=== PATIENT | female | born 1980 | race Caucasian/White ===

== ENCOUNTER 2016-08-12 05:17 | Emergency (ER) | payer OTHER ==
--- NOTE | ~2016-08-12 | US85 ---
[facility] A Service [facility] RADIOLOGY TEXT RESULTS PATIENT: CHEMA SOTO V LOCATION: SED : 79 UNIT #: [id number] AGE: [address]: Rdoo Mai MD SEX: F ORDER DR: [id number] [place] [id number] E MR#: [id number] Acc #: [id number] NAME: CHEMA SOTO : 1980 SEX: F STUDY DATE/TIME: 08/12/2016 8:19 UNIT: SED ROOM: STUDY DESCRIPTION: [facility] Attending Physician: Rodo Mai M.D. Ordering Physician: Shivam Talbot M.D. Primary Care Physician: Nelson Tomlinson M.D. MEDICAL IMAGING REPORT This report is preliminary unless electronic signature is present. EXAM Right leg vein Doppler ultrasound 08/12/2016 INDICATION Right leg pain started about 14 hours ago. Patient may have had a trauma last week after an episode of fainting. Patient has history of Factor V. TECHNIQUE Venous ultrasound examination of the right lower extremity was performed using grayscale, spectral Doppler and color flow Doppler imaging. FINDINGS The examination is negative. There is no evidence of right lower extremity deep venous thrombus from the groin to the lower calf. Visualized greater saphenous vein is also patent. IMPRESSION Negative examination. No evidence of right lower extremity deep venous thrombosis. Dictated by... Juan Goins Jr., M.D. THIS IS AN ELECTRONICALLY VERIFIED REPORT Juan Goins Jr., M.D. at 08/13/2016 4:46 PM MAN/bailey TD: 08/12/2016 09:28 JOB #: [id number] [facility] A Service [facility] RADIOLOGY TEXT RESULTS PATIENT: CHEMA SOTO V LOCATION: SED : 79 UNIT #: [id number] AGE: [address]: Rodo Mai MD SEX: F ORDER DR: MEDICAL IMAGING REPORT Page 1 of 1
[2016-08-12 05:04] LABS: BASOPHIL% 0.6 % (0-2.5); EOSINOPHIL# 0.1 X10e3 (0-0.7); EOSINOPHIL% 1.1 % (0.0-7.0); HEMOGLOBIN 13.1 gm/dL (12.0-16.0); LYMPHOCYTE# 2.9 X10e3 (1.0-3.5); LYMPHOCYTE% 47.8 % (17.0-45.0); MEAN CELL VOLUME 89.3 FL (83-96); MEAN CORPUSCULAR HEMOGLOBIN 29.9 PG (28-34); MEAN CORPUSCULAR HGB CONC 33.5 g/dL (30-36); MEAN PLATELET VOLUME 10.3 FL (6.5-11.5); MONOCYTE# 0.6 X10e3 (0-1.0); MONOCYTE% 10.3 % (3.0-12.0); NEUTROPHIL# 2.4 X10e3 (1.5-7.1); NEUTROPHIL% 40.2 % (40-75); PLATELET COUNT 196 X10e3 (140-420); RED BLOOD COUNT 4.37 X10e (3.90-5.30); RED CELL DISTRIBUTION WIDTH 13.4 % (11.0-15.5); WHITE BLOOD COUNT 6.1 X10e3 (4.0-10.5)
[2016-08-12 05:06] LABS: DIFF IND NO
[2016-08-12 05:14] LABS: INR 1.1; PROTHROMBIN TIME (PATIENT) 12.5 SECONDS (9.5-12.4)
[~2016-08-12 05:17] MED LIST: ADIPEX-P37.5 M1 PO; AMBIEN10 MG PO; AMOXICILLIN500 M1 PO; ASPIRIN81 M2 PO; BACLOFEN10 MG PO; BENADRYL25 M1 PO; BENADRYL25 MG PO; DURAGESIC1 EAC3 TOP; FAMOTIDINE PO; GABAPENTIN600 MG PO; KLONOPIN PO; LITHIUM PO; LORAZEPAM1 MG PO; MECLIZINE HCL12.5 M2 PO; MOBIC PO; NEURONTIN300 MG PO; NORCO 10-325 TA1 TAB PO; PREDNISONE PO; PRILOSEC PO; SEROQUEL PO; TOPAMAX50 MG PO; VICODIN PO; VITAMIN B122500 MC1 INJ; ZANAFLEX PO; ZOLOFT50 MG PO
[2016-08-12 05:22] LABS: BUN/CREATININE RATIO 16.66; CALCIUM SERUM 8.8 mg/dL (8.4-10.2); CREATININE SERUM 0.6 mg/dL (0.6-1.4); GLOM FILT RATE Estimated 116.4 mL/min (>60); POTASSIUM 3.3 mmol/L (3.5-5.1)
[2016-08-12 05:23] LABS: PARTIAL THROMBOPLASTIN TIME 32.5 SECONDS (25.6-38.1)
== END 2016-08-12 09:32 | disposition home or self-care (01) ==
LOC: SED 05:17
PROVIDERS: Emergency Medicine
DX: M79.661 Pain in right lower leg (principal); F31.9 Bipolar disorder, unspecified
CPT/HCPCS: 36415; 80048; 85025; 85610; 85730; 93971; 99284

== ENCOUNTER 2016-09-30 09:12 | Emergency (ER) | payer OTHER | END 2016-09-30 10:13 | disposition home or self-care (01) | LOC: CED 09:12 | DX: R55 Syncope and collapse (principal); S46.811A Strain of other muscles, fascia and tendons at shoulder and upper arm level, right arm, initial encounter; Z91.040 Latex allergy status; Z88.5 Allergy status to narcotic agent; Z88.8 Allergy status to other drugs, medicaments and biological substances; X58.XXXA Exposure to other specified factors, initial encounter | CPT/HCPCS: 99284; J1885 ==

== ENCOUNTER 2016-09-30 17:36 | Emergency (ER) | payer OTHER ==
--- NOTE | ~2016-09-30 | EKG ---
PATIENT: CHEMA SOTO UNIT #: [id number] Ventricular Rate: 76 BPM Atrial Rate: 76 BPM P-R Interval: 130 ms QRS Duration: 70 ms Q-T Interval: 360 ms QTC Calculation(Bezet): 405 ms P [place]: 18 degrees Calculated R [place]: 46 degrees Calculated T [place]: 31 degrees Diagnosis Line: Normal sinus rhythm Diagnosis Line: Normal ECG Diagnosis Line: Diagnosis Line: Confirmed by ROMY LOPEZ MD ([id number]) on 09/30/2016 Diagnosis Line: 7:00:02 PM INTERPRETING MD: JESSICA RIZZO
[2016-09-30 18:19] LABS: BASOPHIL% 0.6 % (0-2.5); DIFF IND NO; EOSINOPHIL% 0.5 % (0.0-7.0); HEMATOCRIT 38.7 % (35.0-45.0); HEMOGLOBIN 12.7 gm/dL (12.0-16.0); LYMPHOCYTE# 2.8 X10e3 (1.0-3.5); LYMPHOCYTE% 35.8 % (17.0-45.0); MEAN CELL VOLUME 90.4 FL (83-96); MEAN CORPUSCULAR HEMOGLOBIN 29.7 PG (28-34); MEAN CORPUSCULAR HGB CONC 32.9 g/dL (30-36); MEAN PLATELET VOLUME 10.3 FL (6.5-11.5); MONOCYTE# 0.8 X10e3 (0-1.0); MONOCYTE% 10.5 % (3.0-12.0); NEUTROPHIL# 4.1 X10e3 (1.5-7.1); NEUTROPHIL% 52.6 % (40-75); PLATELET COUNT 198 X10e3 (140-420); RED BLOOD COUNT 4.28 X10e (3.90-5.30); RED CELL DISTRIBUTION WIDTH 13.6 % (11.0-15.5); WHITE BLOOD COUNT 7.8 X10e3 (4.0-10.5)
[2016-09-30 18:35] LABS: POC - CKMB 1.6 ng/mL (0.0-7.9); POC - TROPONIN <0.05 ng/mL (<=0.05)
[2016-09-30 18:40] LABS: ALBUMIN SERUM 3.8 g/dL (3.5-5.0); ALKALINE PHOSPHATASE 58 U/L (32-92); ALT (SGPT) 13 U/L (10-40); AST (SGOT) 19 U/L (10-42); BILIRUBIN,TOTAL 0.6 mg/dL (0.2-2.0); BLOOD UREA NITROGEN 13 mg/dL (9-23); BUN/CREATININE RATIO 21.66; CALCIUM SERUM 8.4 mg/dL (8.4-10.2); CARBON DIOXIDE 24 mmol/L (22-31); CHLORIDE 105 mmol/L (100-111); CREATININE SERUM 0.6 mg/dL (0.6-1.4); GLOM FILT RATE Estimated 116.4 mL/min (>60); GLUCOSE FASTING 107 mg/dL (70-110); POTASSIUM 3.9 mmol/L (3.5-5.1); PROTEIN TOTAL SERUM 6.3 g/dL (6.0-8.3); SODIUM 136 mmol/L (135-145)
[2016-09-30 18:42] LABS: BILIRUBIN, DIRECT <0.1 mg/dL (0.0-0.2); BILIRUBIN,INDIRECT 0.5 mg/dL (0.0-0.9)
[2016-09-30 20:05] LABS: URINE SOURCE CLEAN CATCH
[2016-09-30 20:10] LABS: URINE APPEARANCE CLOUDY; URINE BILIRUBIN NEG (NEG); URINE BLOOD NEG (NEG); URINE COLOR YELLOW; URINE GLUCOSE NEG (NEG); URINE KETONE NEG (NEG); URINE LEUKOCYTE ESTERASE NEG (NEG); URINE NITRATE NEG (NEG); URINE PH 6.5 (5-8); URINE PROTEIN NEG (NEG); URINE SPECIFIC GRAVITY 1.026 (1.003-1.035)
[2016-09-30 20:16] LABS: CULTURE INDICATED? NO
[2016-09-30 20:57] LABS: POC - CKMB 1.4 ng/mL (0.0-7.9); POC - TROPONIN <0.05 ng/mL (<=0.05)
== END 2016-09-30 21:56 | disposition home or self-care (01) ==
LOC: CED 17:36
PROVIDERS: Emergency Medicine
DX: R07.89 Other chest pain (principal); R55 Syncope and collapse; Z91.040 Latex allergy status; Z88.5 Allergy status to narcotic agent; Z88.8 Allergy status to other drugs, medicaments and biological substances; Z79.899 Other long term (current) drug therapy
CPT/HCPCS: 36415; 80048; 80076; 81003; 82553; 84484; 85025; 93005; 99284

== ENCOUNTER → 2016-10-22 | Outpatient (CLI) | payer OTHER ==
[~2016-10-22] MED LIST changes: +CHEWABLE ASPIRI81 MG; +EFFEXOR75 M2 PO; +GABAPENTIN300 MG PO; +KLONOPIN0.5 M3 PO; +MULTI VITAMIN1 EACH; +NAPROXEN PO; +PLAQUENIL200 MG PO; +SEROQUEL100 MG PO; +VITAMIN D250000 UNIT; +XARELTO15 MG PO
--- NOTE | ~2016-10-22 | MR31 ---
[facility] A Service of [facility] RADIOLOGY TEXT RESULTS PATIENT: CHEMA SOTO V LOCATION: [facility] : 79 UNIT #: [id number] AGE: [address]: Ji Velasco II, MD SEX: F ORDER DR: [id number] [place] [id number] [facility]. [place], [place] [address] [id number] O MR#: [id number] Acc #: [id number] NAME: CHEMA SOTO V. : 1980 SEX: F STUDY DATE/TIME: 10/22/2016 16:40 UNIT: [facility] ROOM: STUDY DESCRIPTION: MR Cervical WWo Contrast Attending Physician: Ji Velasco II., M.D. Referring Physician: Ji Velasco II., M.D. Ordering Physician: Ji Velasco II., M.D. Primary Care Physician: Nelson Tomlinson M.D. MRI CENTER REPORT This report is preliminary unless electronic signature is present. EXAM Cervical spine MRI with and without contrast 10/22/2016 COMPARISON Unenhanced cervical spine MRI 04/12/2013. PROCEDURE Routine cervical spine MRI with and without contrast. CLINICAL HISTORY 6 month history of headache, dizziness and blurred vision and 3 week history of syncopal episode. Recent diagnosis of lupus. Bilateral arm weakness for 3 weeks. FINDINGS There has been cervical fusion anteriorly at 6-7, new since the prior study. Allowing for metallic field distortion bone marrow signal appears normal. Cord signal is normal and the posterior fossa and its contents are normal. Postcontrast images show no conspicuous or suspicious abnormal enhancement. At C2-3, the canal and foramina are normal. At C3-4, there is mild canal narrowing and minimal right and left foraminal narrowing. At C4-5 there is a right side bony ridge, mild right-sided canal stenosis, no definite cord compression, and no left but mild or [id number] right foraminal narrowing. At C5-6, there is mild canal stenosis and borderline to mild right and no left foraminal stenosis. [facility] A Service of [facility] RADIOLOGY TEXT RESULTS PATIENT: CHEMA [facility]OTO [facility] UN[facility] #: [id number] AGE: [address]: Ji Velasco II, MD SEX: F ORDER DR: At 6-7, the canal and foramina are widely patent. At 7-1, the canal and foramina are normal. IMPRESSION Degenerative change is fairly modest primarily at 4-5 and 5-6 status post anterior fusion at 6-7. No cord compression or abnormal cord signal. No abnormal enhancement. Dictated by... Lincoln Armenta M.D. THIS IS AN ELECTRONICALLY VERIFIED REPORT Lincoln Armenta M.D. at 11/03/2016 10:39 AM PAYTON/mack TD: 10/25/2016 15:27 JOB #: [id number] MRI CENTER REPORT Page 1 of 1 COPY
--- NOTE | ~2016-10-22 | CT23 ---
[facility] A Service of [facility] RADIOLOGY TEXT RESULTS PATIENT: CHEMA SOTO V [facility] UNIT #: [id number] AGE: [address]: Ji Velasco II, MD SEX: F ORDER DR: [id number] [place] [id number] [place], [place] [address] [id number] O MR#: [id number] Acc #: [id number] NAME: CHEMA SOTO V. : 1980 SEX: F STUDY DATE/TIME: 10/22/2016 15:42 UNIT: [facility] ROOM: STUDY DESCRIPTION: CT Angio Neck Attending Physician: Ji Velasco II., M.D. Referring Physician: Ji Velasco II., M.D. Ordering Physician: iJ Velasco II., M.D. Primary Care Physician: Nelson Tomlinson M.D. MEDICAL IMAGING REPORT This report is preliminary unless electronic signature is present EXAM CT angiogram of the neck 10/22/2016 Result text under order number ending [id number] CT angiogram of the head and neck 10/22/2016. Please see this order for result text. Dictated by... Lincoln Armenta M.D. THIS IS AN ELECTRONICALLY VERIFIED REPORT Lincoln Armenta M.D. at 11/03/2016 10:40 AM PAYTON/hernando TD: 10/25/2016 15:30 JOB #: [id number] MEDICAL IMAGING REPORT Page 1 of 1 COPY
--- NOTE | ~2016-10-22 | MR17 ---
[facility] A Service of [facility] RADIOLOGY TEXT RESULTS PATIENT: CHEMA SOTO V LOCATION: [facility] : 79 UNIT #: [id number] AGE: [address]: Ji Velasco II, MD SEX: F ORDER DR: [id number] [place] [address] [facility]. [place], [place] [address] [id number] O MR#: [id number] Acc #: [id number] NAME: CHEMA SOTO V. : 1980 SEX: F STUDY DATE/TIME: 10/22/2016 16:14 UNIT: [facility] ROOM: STUDY DESCRIPTION: MR Brain WWo Contrast Attending Physician: Ji Velasco II., M.D. Referring Physician: Ji Velasco II., M.D. Ordering Physician: Ji Velasco II., M.D. Primary Care Physician: Nelson Tomlinson M.D. MRI CENTER REPORT This report is preliminary unless electronic signature is present. EXAM Brain MRI with and without contrast, 10/22/2016. COMPARISON Head and neck CT angiogram, same date. PROCEDURE Routine brain MR with and without contrast. CLINICAL HISTORY 6-month history of headaches, dizziness, and blurred vision and 3-week history of multiple syncopal episodes. History of lupus. Previous history of bilateral arm weakness. FINDINGS There is no MR evidence of restricted diffusion. There is no intracranial hemorrhage. There is no hydrocephalus or extraaxial fluid collection. Brain parenchymal signal is normal. Normal flow voids are seen in the cerebral vessels. The extracranial soft tissues are normal. Bone marrow signal is normal, and postcontrast images show no mass or abnormal enhancement. IMPRESSION Normal brain MR with and without contrast. Dictated by... Lincoln Armenta M.D. THIS IS AN ELECTRONICALLY VERIFIED REPORT Lincoln Armenta M.D. at 10/25/2016 10:54 AM PAYTON/antony [facility] A Service of [facility] RADIOLOGY TEXT RESULTS PATIENT: CHEMA SOTO V LOCATION: [facility] : 79 UNIT #: [id number] AGE: [address]: Ji Velasco II, MD SEX: F ORDER DR: TD: 10/24/2016 17:14 JOB #: [id number] MRI CENTER REPORT Page 1 of 1 COPY
--- NOTE | ~2016-10-22 | CT17 ---
[facility] A Service of [facility] RADIOLOGY TEXT RESULTS PATIENT: CHEMA SOTO V LOCATION: [facility] : 79 UNIT #: [id number] AGE: [address]: Ji Velasco II, MD SEX: F ORDER DR: [id number] [facility] [address] [place], [place] [address] [id number] O MR#: [id number] Acc #: [id number] NAME: CHEMA SOTO V. : 1980 SEX: F STUDY DATE/TIME: 10/22/2016 15:42 UNIT: [facility] ROOM: STUDY DESCRIPTION: CT Angio Head Attending Physician: Ji Velasco II., M.D. Referring Physician: Ji Velasco II., M.D. Ordering Physician: Ji Velasco II., M.D. Primary Care Physician: Nelson Tolminson M.D. MEDICAL IMAGING REPORT This report is preliminary unless electronic signature is present EXAM Head and neck CT angiogram with contrast 10/22/2016 PROCEDURE Axial contrast-enhanced head and neck CT angiogram with three-dimensional reformats. This CT exam was performed with one or more of the following radiation dose reduction techniques: automatic exposure control, adjustment of mA and/or kV according to patient size, and iterative reconstruction. COMPARISON Brain MRI 10/24/2016 and carotid Doppler 05/21/2015 HISTORY Memory loss, headache and syncope for 1 month. FINDINGS There is a bovine-type aortic arch branching pattern without proximal great vessel stenosis. The vertebral origins are widely patent and the cervical carotid bifurcations are normal without plaque, and without stenosis, by NASCET or other criteria. The upper cervical vertebral and internal carotid arteries are normal and in intracranially, the basilar artery is normal and the [place] of [place] appears complete. There is no evidence of intracranial aneurysm or flow-limiting stenosis though the anterior communicator is broad and may in fact the fenestrated. There is symmetric intracranial vascularity in the anterior, middle and posterior cerebral distributions. The dural venous sinuses are normal. The cervical soft tissues are normal. There has been previous cervical fusion. The brain appears normal. The skull base and calvarium and other bony structures are unremarkable except for prior cervical fusion and the lung apices are normal. [facility] A Service of [facility] & [facility] RADIOLOGY TEXT RESULTS PATIENT: CHEMA SOTO V [id number] [birth year] UNIT #: [id number] AGE: [address]: Ji Velasco II, MD SEX: F ORDER DR: IMPRESSION Normal head and neck CT angiogram. No carotid or vertebral stenosis. No stenosis by NASCET criteria on either side. Dictated by... Lincoln Armenta M.D. THIS IS AN ELECTRONICALLY VERIFIED REPORT Lincoln Armenta M.D. at 11/03/2016 10:39 AM PAYTON/hernando TD: 10/25/2016 15:28 JOB #: [id number] MEDICAL IMAGING REPORT Page 1 of 1 COPY
== END | disposition home or self-care (01) ==
LOC: CCAT 13:56
DX: R53.83 Other fatigue (principal); M47.892 Other spondylosis, cervical region; Z98.1 Arthrodesis status
CPT/HCPCS: 70496; 70498; 70553; 72156; A9577; Q9967

== ENCOUNTER 2016-10-23 22:52 | Emergency (ER) | payer OTHER ==
[~2016-10-23 22:52] MED LIST changes: -CHEWABLE ASPIRI81 MG; -EFFEXOR75 M2 PO; -GABAPENTIN300 MG PO; -KLONOPIN0.5 M3 PO; -MULTI VITAMIN1 EACH; -NAPROXEN PO; -PLAQUENIL200 MG PO; -SEROQUEL100 MG PO; -VITAMIN D250000 UNIT; -XARELTO15 MG PO
[2016-10-23] MEDS ORDERED: VITAMIN D250000 UNIT (23:01)
[2016-10-23] MEDS ORDERED: CHEWABLE ASPIRI81 MG (23:01)
[2016-10-23] MEDS ORDERED: MULTI VITAMIN1 EACH (23:01)
== END 2016-10-23 23:59 | disposition home or self-care (01) ==
LOC: SED 22:52
DX: I80.8 Phlebitis and thrombophlebitis of other sites (principal); F31.9 Bipolar disorder, unspecified; Z98.890 Other specified postprocedural states; Z88.5 Allergy status to narcotic agent; Z91.040 Latex allergy status; Z79.899 Other long term (current) drug therapy
CPT/HCPCS: 99283

== ENCOUNTER 2016-11-17 21:40 | Emergency (ER) | payer OTHER, MEDICARE ==
[~2016-11-17] VITALS: Ht 147.3 cm; Wt 63.0 kg
--- NOTE | ~2016-11-17 | EKG ---
PATIENT: CHEMA SOTO UNIT #: [id number] Ventricular Rate: 71 BPM Atrial Rate: 71 BPM P-R Interval: 156 ms QRS Duration: 70 ms Q-T Interval: 372 ms QTC Calculation(Bezet): 404 ms P [place]: 39 degrees Calculated R [place]: 63 degrees Calculated T [place]: 47 degrees Diagnosis Line: Normal sinus rhythm Diagnosis Line: Normal ECG Diagnosis Line: When compared with ECG of 30-SEP-2016 17:39, Diagnosis Line: No significant change was found Diagnosis Line: Confirmed by HUYEN MITCHELL MD ([id number]) on Diagnosis Line: 11/18/2016 1:36:00 PM INTERPRETING MD: STEPHEN RIZZO
--- NOTE | ~2016-11-17 | CT16 ---
[facility] A Service of [facility] RADIOLOGY TEXT RESULTS PATIENT: CHEMA SOTO V LOCATION: SED : 79 UNIT #: [id number] AGE: [address]: José Luis Pérez MD SEX: F ORDER DR: [id number] [place] [id number] E MR#: [id number] Acc #: [id number] NAME: CHEMA SOTO V. : 1980 SEX: F STUDY DATE/TIME: 11/17/2016 23:22 UNIT: SED ROOM: STUDY DESCRIPTION: CT Angio Chest for PE Attending Physician: José Luis Pérez M.D. Ordering Physician: José Luis Pérez M.D. Primary Care Physician: Nelson Tomlinson M.D. MEDICAL IMAGING REPORT This report is preliminary unless electronic signature is present. EXAM Chest CTA, 11/17 at 2322 hours. INDICATIONS Pain under the left breast with cough and shortness of air for 1 week. History of factor 5. TECHNIQUE Axial images were obtained through the chest following IV contrast administration. 3-D reformats were obtained. Comparison made with 11/25/2015. This CT exam was performed with one or more of the following radiation dose reduction techniques: automatic exposure control, adjustment of mA and/or kV according to patient size, and iterative reconstruction. FINDINGS No pulmonary embolism or aortic dissection is seen. There is no pleural or pericardial effusion. There is no adenopathy. There is chronic elevation of the right hemidiaphragm. Lungs are clear. Upper abdomen is unremarkable. Patient status post cervical fusion. IMPRESSION No pulmonary embolism or aortic dissection. No active disease in the chest. Dictated by... Juan Goins Jr., M.D. THIS IS AN ELECTRONICALLY VERIFIED REPORT Juan Goins Jr., M.D. at 11/18/2016 6:01 AM ANTONIAK/amarilis [facility] A Service of [facility] RADIOLOGY TEXT RESULTS PATIENT: CHEMA SOTO V LOCATION: [facility] : 79 UNIT #: [id number] AGE: [address]: José Luis Pérez MD SEX: F ORDER DR: TD: 11/18/2016 05:28 JOB #: [id number] MEDICAL IMAGING REPORT Page 1 of 1
[~2016-11-17 21:40] MED LIST changes: +CHEWABLE ASPIRI81 MG; +MULTI VITAMIN1 EACH; +VITAMIN D250000 UNIT
[2016-11-17] MEDS ORDERED: KLONOPIN0.5 M3 PO (21:55)
[2016-11-17] MEDS ORDERED: GABAPENTIN300 MG PO (21:55)
[2016-11-17] MEDS ORDERED: EFFEXOR75 M2 PO (21:55)
[2016-11-17] MEDS ORDERED: NAPROXEN PO (21:55)
[2016-11-17 22:47] LABS: BASOPHIL# 0.1 X10e3 (0-0.3); BASOPHIL% 0.7 % (0-2.5); DIFF IND NO; EOSINOPHIL# 0.1 X10e3 (0-0.7); EOSINOPHIL% 1.4 % (0.0-7.0); HEMATOCRIT 38.2 % (35.0-45.0); LYMPHOCYTE# 2.7 X10e3 (1.0-3.5); LYMPHOCYTE% 39.2 % (17.0-45.0); MEAN CELL VOLUME 90.6 FL (83-96); MEAN CORPUSCULAR HEMOGLOBIN 30.7 PG (28-34); MEAN CORPUSCULAR HGB CONC 33.9 g/dL (30-36); MEAN PLATELET VOLUME 9.9 FL (6.5-11.5); MONOCYTE# 0.7 X10e3 (0-1.0); MONOCYTE% 10.6 % (3.0-12.0); NEUTROPHIL# 3.3 X10e3 (1.5-7.1); NEUTROPHIL% 48.1 % (40-75); PLATELET COUNT 191 X10e3 (140-420); RED BLOOD COUNT 4.21 X10e (3.90-5.30); RED CELL DISTRIBUTION WIDTH 13.5 % (11.0-15.5); WHITE BLOOD COUNT 6.9 X10e3 (4.0-10.5)
[2016-11-17 22:53] LABS: PROTHROMBIN TIME (PATIENT) 11.6 SECONDS (9.5-12.4)
[2016-11-17 22:59] LABS: POC - CKMB 2.5 ng/mL (0.0-7.9); POC - TROPONIN <0.05 ng/mL (<=0.05)
[2016-11-17 23:01] LABS: ALBUMIN SERUM 3.9 g/dL (3.5-5.0); ALKALINE PHOSPHATASE 70 U/L (32-92); ALT (SGPT) 18 U/L (10-40); AST (SGOT) 24 U/L (10-42); BILIRUBIN,TOTAL 0.3 mg/dL (0.2-2.0); BLOOD UREA NITROGEN 16 mg/dL (9-23); BUN/CREATININE RATIO 26.66; CALCIUM SERUM 8.6 mg/dL (8.4-10.2); CARBON DIOXIDE 25 mmol/L (22-31); CHLORIDE 106 mmol/L (100-111); CREATININE SERUM 0.6 mg/dL (0.6-1.4); GLOM FILT RATE Estimated 116.4 mL/min (>60); GLUCOSE FASTING 88 mg/dL (70-110); PARTIAL THROMBOPLASTIN TIME 31.8 SECONDS (25.6-38.1); POTASSIUM 3.8 mmol/L (3.5-5.1); PROTEIN TOTAL SERUM 6.7 g/dL (6.0-8.3); SODIUM 137 mmol/L (135-145)
[2016-11-17 23:05] LABS: BILIRUBIN, DIRECT <0.1 mg/dL (0.0-0.2); BILIRUBIN,INDIRECT 0.2 mg/dL (0.0-0.9)
[2016-11-18 00:29] LABS: POC - CKMB 1.8 ng/mL (0.0-7.9); POC - TROPONIN <0.05 ng/mL (<=0.05)
== END 2016-11-18 00:43 | disposition home or self-care (01) ==
LOC: SED 21:40
PROVIDERS: Emergency Medicine
DX: R07.9 Chest pain, unspecified (principal); F31.9 Bipolar disorder, unspecified; M32.9 Systemic lupus erythematosus, unspecified; Z88.5 Allergy status to narcotic agent; Z91.040 Latex allergy status; Z88.8 Allergy status to other drugs, medicaments and biological substances; Z79.899 Other long term (current) drug therapy; F17.200 Nicotine dependence, unspecified, uncomplicated
CPT/HCPCS: 36415; 71275; 80048; 80076; 82553; 84484; 84703; 85025; 85610; 85730; 93005; 99285; Q9967

== ENCOUNTER 2016-11-25 19:41 | Emergency (ER) | payer MEDICARE, OTHER ==
[~2016-11-25] VITALS: Ht 147.3 cm; Wt 63.0 kg
--- NOTE | ~2016-11-25 | EKG ---
PATIENT: CHEMA SOTO UNIT #: [id number] Ventricular Rate: 67 BPM Atrial Rate: 67 BPM P-R Interval: 142 ms QRS Duration: 66 ms Q-T Interval: 378 ms QTC Calculation(Bezet): 399 ms P [place]: 32 degrees Calculated R [place]: 59 degrees Calculated T [place]: 1 degrees Diagnosis Line: Normal sinus rhythm Diagnosis Line: Normal ECG Diagnosis Line: When compared with ECG of 17-NOV-2016 22:20, Diagnosis Line: No significant change was found Diagnosis Line: Confirmed by ROMY LOPEZ MD ([id number]) on 11/27/2016 Diagnosis Line: 8:25:36 AM INTERPRETING MD: JESSICA RIZZO
[~2016-11-25 19:41] MED LIST changes: -PLAQUENIL200 MG PO; -SEROQUEL100 MG PO; -XARELTO15 MG PO
[2016-11-25] MEDS ORDERED: XARELTO15 MG PO (19:47)
[2016-11-25] MEDS ORDERED: PLAQUENIL200 MG PO (19:47)
[2016-11-25] MEDS ORDERED: SEROQUEL100 MG PO (19:48)
[2016-11-25] MEDS ORDERED: AMBIEN10 MG PO (19:48)
[2016-11-25 20:51] LABS: BASOPHIL# 0.1 X10e3 (0-0.3); BASOPHIL% 0.6 % (0-2.5); EOSINOPHIL# 0.1 X10e3 (0-0.7); EOSINOPHIL% 0.5 % (0.0-7.0); HEMATOCRIT 40.3 % (35.0-45.0); HEMOGLOBIN 13.2 gm/dL (12.0-16.0); LYMPHOCYTE# 2.5 X10e3 (1.0-3.5); LYMPHOCYTE% 24.5 % (17.0-45.0); MEAN CELL VOLUME 90.4 FL (83-96); MEAN CORPUSCULAR HEMOGLOBIN 29.6 PG (28-34); MEAN CORPUSCULAR HGB CONC 32.8 g/dL (30-36); MEAN PLATELET VOLUME 10.1 FL (6.5-11.5); MONOCYTE# 1.2 X10e3 (0-1.0); NEUTROPHIL# 6.4 X10e3 (1.5-7.1); NEUTROPHIL% 62.4 % (40-75); PLATELET COUNT 217 X10e3 (140-420); RED BLOOD COUNT 4.45 X10e (3.90-5.30); RED CELL DISTRIBUTION WIDTH 13.4 % (11.0-15.5); WHITE BLOOD COUNT 10.2 X10e3 (4.0-10.5)
[2016-11-25 20:58] LABS: DIFF IND NO
[2016-11-25 20:59] LABS: POC - CKMB <1.0 ng/mL (0.0-7.9); POC - TROPONIN <0.05 ng/mL (<=0.05)
[2016-11-25 21:22] LABS: ALBUMIN SERUM 3.9 g/dL (3.5-5.0); BILIRUBIN, DIRECT 0.1 mg/dL (0.0-0.2); BILIRUBIN,INDIRECT 0.1 mg/dL (0.0-0.9); BILIRUBIN,TOTAL 0.2 mg/dL (0.2-2.0); CALCIUM SERUM 8.8 mg/dL (8.4-10.2); CREATININE SERUM 0.6 mg/dL (0.6-1.4); GLOM FILT RATE Estimated 116.4 mL/min (>60); POTASSIUM 3.2 mmol/L (3.5-5.1); PROTEIN TOTAL SERUM 6.9 g/dL (6.0-8.3)
== END 2016-11-25 23:25 | disposition home or self-care (01) ==
LOC: CED 19:41
PROVIDERS: Emergency Medicine
DX: J18.1 Lobar pneumonia, unspecified organism (principal); Z90.710 Acquired absence of both cervix and uterus; Z98.890 Other specified postprocedural states; Z91.040 Latex allergy status; Z88.5 Allergy status to narcotic agent; Z79.899 Other long term (current) drug therapy
CPT/HCPCS: 36415; 80048; 80076; 82553; 84484; 85025; 87040; 93005; 94640; 96365; 96367; 99285; J0456; J0696; J2405

== ENCOUNTER → 2016-11-25 | Outpatient (CLI) | payer OTHER, MEDICARE ==
[~2016-11-25] MED LIST changes: +EFFEXOR75 M2 PO; +GABAPENTIN300 MG PO; +KLONOPIN0.5 M3 PO; +NAPROXEN PO; +PLAQUENIL200 MG PO; +SEROQUEL100 MG PO; +XARELTO15 MG PO
--- NOTE | ~2016-11-25 | CR63 ---
[facility] A Service of [facility] RADIOLOGY TEXT RESULTS PATIENT: CHEMA SOTO LOCATION: [facility] : 79 UNIT #: [id number] AGE: [address]: Fuentes Marc MD SEX: F ORDER DR: [id number] [facility] [address] [place], [place] [address] [id number] O MR#: [id number] Acc #: [id number] NAME: CHEMA SOTO : 1980 SEX: F STUDY DATE/TIME: 11/25/2016 UNIT: [facility] ROOM: STUDY DESCRIPTION: CR Chest 2 View Attending Physician: Fuentes Marc M.D. Referring Physician: Fuentes Marc M.D. Ordering Physician: Fuentes Marc M.D. Primary Care Physician: Nelson Tomlinson M.D. MEDICAL IMAGING REPORT This report is preliminary unless electronic signature is present EXAM Chest 2 views 11/25/2016 1849 hours. HISTORY Chest pain, cough, shortness of air, and congestion for [address] 11/17/2016. FINDINGS Upright PA and lateral views of the chest demonstrate normal cardiac, mediastinal and hilar contours. There is new vague parenchymal density in the left upper lung, not seen on CT 11/17/2016, concerning for pneumonia. Lungs are otherwise clear. No effusions are seen. IMPRESSION There is new vague parenchymal density in the left upper lung concerning for pneumonia, not seen on chest CT 11/17/2016. There is no adenopathy or pleural effusion. STAT * RESULT Dictated by... Sera Shepherd M.D. THIS IS AN ELECTRONICALLY VERIFIED REPORT Sera Shepherd M.D. at 11/25/2016 9:17 PM AUGUSTIN/antony TD: 11/25/2016 19:23 JOB #: [id number] [facility] A Service of [facility] & [facility] RADIOLOGY TEXT RESULTS PATIENT: CHEMA SOTO LOCATION: [facility] #: [id number] : 79 UNIT #: [id number] AGE: [address]: Fuentes Marc MD SEX: F ORDER DR: MEDICAL IMAGING REPORT Page 1 of 1 COPY
== END | disposition home or self-care (01) ==
LOC: CRAD 18:03
DX: R07.9 Chest pain, unspecified (principal); R06.02 Shortness of breath; J98.4 Other disorders of lung
CPT/HCPCS: 71020

== ENCOUNTER 2016-12-04 17:45 | Emergency (ER) | payer MEDICARE, OTHER ==
[~2016-12-04] VITALS: Ht 149.9 cm; Wt 65.8 kg
[~2016-12-04 17:45] MED LIST changes: +PLAQUENIL200 MG PO; +SEROQUEL100 MG PO; +XARELTO15 MG PO
[2016-12-04] MEDS ORDERED: PLAQUENIL200 MG PO (17:52)
== END 2016-12-04 19:59 | disposition left against medical advice (07) ==
LOC: SED 17:45
DX: Z53.21 Procedure and treatment not carried out due to patient leaving prior to being seen by health care provider (principal)

== ENCOUNTER 2016-12-16 20:09 | Emergency (ER) | payer OTHER ==
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
== END 2016-12-16 21:40 | disposition home or self-care (01) ==
LOC: SED 20:09
DX: S70.02XA Contusion of left hip, initial encounter (principal); S40.012A Contusion of left shoulder, initial encounter; S20.212A Contusion of left front wall of thorax, initial encounter; R51 Headache; M79.7 Fibromyalgia; Z87.891 Personal history of nicotine dependence; Z79.899 Other long term (current) drug therapy; Z88.5 Allergy status to narcotic agent; Z91.040 Latex allergy status; Z91.048 Other nonmedicinal substance allergy status; V43.52XA Car driver injured in collision with other type car in traffic accident, initial encounter
CPT/HCPCS: 70450; 71020; 99284

== ENCOUNTER → 2016-12-28 | Outpatient (CLI) | payer OTHER ==
--- NOTE | ~2016-12-28 | EE ---
Unit #: [id number] #: [id number] Patient: CHEMA SOTO [id number] [address] [address] [id number] O MR#: [id number] NAME: CHEMA SOTO : 1980 SEX: F STUDY DATE/TIME: 12/28/2016 UNIT: [facility] ROOM: STUDY DESCRIPTION: EEG Attending Physician: Ji Velasco II., M.D. Referring Physician: Ji Velasco II., M.D. Primary Care Physician: Nelson Tomlinson M.D. NEURODIAGNOSTICS REPORT EXAM EEG REASON FOR STUDY Seizures. TECH Crunchfish TECHNICAL INFORMATION This is a routine EEG performed using the standard International 10-20 System of electrode placement. Photic stimulation was performed. Hyperventilation was also performed. REPORT Throughout the entire study, the best background rhythm seen is approximately 11 Hz. This rhythm is seen in both posterior head regions symmetrically and does attenuate to eye opening and closure. Hyperventilation was performed which did not elicit any abnormal build-up. Photic stimulation was also performed which did not elicit any epileptiform abnormalities. There was significant bitemporal artifact which appears to be movement artifact during photic stimulation. However, no discernible electrographic epileptiform abnormalities were noted. Throughout the entire study there again is significant central and frontal artifact. However, no evidence for electrographic seizures nor were there any evidence for independent epileptiform abnormalities. No sleep was recorded during the EEG. However, she does become somewhat drowsy. INTERPRETATION This is a normal awake and drowsy EEG. A normal EEG does not rule out the possibility of a seizure disorder. Clinical correlation is advised. Dictated by... Ji Velasco II., M.D. GWS/mandeep TD: 01/04/2017 06:16 JOB #: [id number] Unit #: [id number] #: [id number] Patient: CHEMA SOTO NEURODIAGNOSTICS REPORT Page 1 of 1 X NEURODIAGNOSTICS REPORT
== END | disposition home or self-care (01) ==
LOC: CEEG 07:30
DX: R56.9 Unspecified convulsions (principal)
CPT/HCPCS: 95816

== ENCOUNTER 2017-01-12 14:07 | Emergency (ER) | payer OTHER ==
--- NOTE | ~2017-01-12 | EKG ---
PATIENT: CHEMA SOTO UNIT #: [id number] Ventricular Rate: 99 BPM Atrial Rate: 99 BPM P-R Interval: 156 ms QRS Duration: 74 ms Q-T Interval: 330 ms QTC Calculation(Bezet): 423 ms P [place]: 23 degrees Calculated R [place]: 47 degrees Calculated T [place]: -2 degrees Diagnosis Line: Normal sinus rhythm Diagnosis Line: Nonspecific T wave abnormality Diagnosis Line: Abnormal ECG Diagnosis Line: When compared with ECG of 25-NOV-2016 19:54, Diagnosis Line: Nonspecific T wave abnormality, worse in Anterior Diagnosis Line: leads Diagnosis Line: Confirmed by HUYEN MITCHELL MD ([id number]) on Diagnosis Line: 01/14/2017 9:10:36 AM INTERPRETING MD: STEPHEN RIZZO
[2017-01-12 15:56] LABS: BASOPHIL% 0.3 % (0-2.5); EOSINOPHIL% 0.1 % (0.0-7.0); HEMATOCRIT 38.3 % (35.0-45.0); HEMOGLOBIN 12.7 gm/dL (12.0-16.0); LYMPHOCYTE# 1.7 X10e3 (1.0-3.5); LYMPHOCYTE% 12.1 % (17.0-45.0); MEAN CELL VOLUME 89.9 FL (83-96); MEAN CORPUSCULAR HEMOGLOBIN 29.9 PG (28-34); MEAN CORPUSCULAR HGB CONC 33.3 g/dL (30-36); MONOCYTE# 1.8 X10e3 (0-1.0); MONOCYTE% 12.3 % (3.0-12.0); NEUTROPHIL# 10.8 X10e3 (1.5-7.1); NEUTROPHIL% 75.2 % (40-75); PLATELET COUNT 166 X10e3 (140-420); RED BLOOD COUNT 4.26 X10e (3.90-5.30); RED CELL DISTRIBUTION WIDTH 12.9 % (11.0-15.5); WHITE BLOOD COUNT 14.4 X10e3 (4.0-10.5)
[2017-01-12 16:02] LABS: DIFF IND NO
[2017-01-12 16:37] LABS: ALBUMIN SERUM 3.4 g/dL (3.5-5.0); BILIRUBIN, DIRECT 0.1 mg/dL (0.0-0.2); BILIRUBIN,INDIRECT 0.4 mg/dL (0.0-0.9); BILIRUBIN,TOTAL 0.5 mg/dL (0.2-2.0); BUN/CREATININE RATIO 12.5; CALCIUM SERUM 8.1 mg/dL (8.4-10.2); CREATININE SERUM 0.8 mg/dL (0.6-1.4); GLOM FILT RATE Estimated 94.3 mL/min (>60); POTASSIUM 3.6 mmol/L (3.5-5.1); PROTEIN TOTAL SERUM 6.4 g/dL (6.0-8.3)
== END 2017-01-12 18:17 | disposition home or self-care (01) ==
LOC: SED 14:07
PROVIDERS: Emergency Medicine
DX: L03.114 Cellulitis of left upper limb (principal); R53.1 Weakness; Z88.5 Allergy status to narcotic agent; Z88.8 Allergy status to other drugs, medicaments and biological substances; Z91.040 Latex allergy status; Z79.899 Other long term (current) drug therapy
CPT/HCPCS: 36415; 80048; 80076; 85025; 93005; 96361; 96374; 99285; J1200